=== PATIENT | male | born 1970 | race Caucasian/White ===

== ENCOUNTER 2017-02-15 06:09 | Day surgery (SDC) | payer BC ==
--- NOTE | 2017-02-07 11:33 | HP ---
DATE OF ADMISSION: 02/13/2017 HISTORY OF PRESENT ILLNESS: This is the first orthopedic outpatient admission for surgery for this 46-year- old male who is being admitted with a tear of the rotator cuff, intractable pain, arthritis of the AC joint, and possible biceps tendonitis. The patient has gone through a treatment program, which has failed. He has had continued pain and inability to use his right arm for any type of lifting, overhead arm movement. He has significant weakness and positive nighttime pain that disturbs his sleep. With the failed treatment, the patient is now being scheduled for the surgery. The procedure has been outlined to him. He understands the procedure and has consented to it. ALLERGIES: To Ceclor and Lorabid. CURRENT MEDICATIONS: Current medications include tramadol 50 mg and Mobic 15 mg. PAST MEDICAL HISTORY: The patient denies any previous medical history. PAST SURGICAL HISTORY: Positive. He has had previous sinus surgery. He has had right hand tendon repair and appendectomy. He has had general anesthesia with no complications or problems. He has negative bleeding history and negative blood clot history. SOCIAL HISTORY: He is a nonsmoker. Alcohol is only occasional. PHYSICAL EXAMINATION: GENERAL: Today, reveals a well-developed and well-nourished 46-year-old male in moderate distress. HEAD, EYES, EARS, NOSE AND THROAT: Normocephalic. NECK: Supple. CHEST: Clear. COR: Regular rate. ABDOMEN: Soft. : Intact. EXTREMITIES: Examination of the right shoulder reveals abduction, forward flexion to 160 degrees, positive rotator cuff pain, especially on stressing. Positive AC joint pain and positive pain over the biceps tendon. RADIOGRAPHIC STUDIES: The patient had a previous MRI, which shows tear of the rotator cuff, questionable biceps tendon injury, and AC joint arthritis. ASSESSMENT: 1. Right shoulder acromioclavicular joint arthritis. 2. Rotator cuff tear, right shoulder. 3. Bicipital tendinitis, right shoulder. PLAN: Plan is for the patient to undergo arthroscopic surgery. Procedure has been outlined to the patient. He understands the procedure and has consented to it. KRISHNA /[id number]
[~2017-02-15 06:09] MED LIST: Lactated Ringers 1,000 ML IV SCH; Lidocaine 1%/Sod Bicarbonate in NS 8.4% 1 ML Syringe IV PRN; Sodium Chloride 0.9% 10 ML Syringe FLUSH PRN
--- NOTE | 2017-02-15 07:03 | PCM.PREANE ---
Preanesthetic Assessment - Anesthesia/Transfusion/Family Hx Anesthesia History: Prior Anesthesia Without Reaction Family History of Anesthesia Reaction: No Transfusion History: No Prior Transfusion(s) - Review of Systems General: No Symptoms Pulmonary: No Symptoms Cardiovascular: No Symptoms Gastrointestinal: No Symptoms Neurological: No Symptoms Other: Reports: None - Physical Assessment NPO Status Date: 02/14/17 NPO Status Time: 20:30 Pulse: 85 O2 Sat by Pulse Oximetry: 98 Respiratory Rate: 16 Blood Pressure: 144/99 Temperature: 36.6 C Vital Signs: Last Vital Signs Temp 36.6 C 02/15/17 06:15 Pulse 85 02/15/17 06:15 Resp 16 02/15/17 06:15 BP 144/99 H 02/15/17 06:15 Pulse Ox 98 02/15/17 06:15 Height: 1.73 m Weight: 74.843 kg ASA Class: 1 Mental Status: Alert & Oriented x3 Airway Class: Mallampati = 1 Dentition: Reports: Normal Dentition Thyro-Mental Finger Breadths: 3 Mouth Opening Finger Breadths: 3 ROM/Head Extension: Full Lungs: Clear to Auscultation, Normal Respiratory Effort Cardiovascular: Regular Rate, Regular Rhythm, No Murmurs - Allergies Allergies/Adverse Reactions: Allergies Allergy/AdvReac Type Severity Reaction Status Date / Time cefaclor [From Ceclor] Allergy Rash Verified 02/15/17 06:55 loracarbef [From Lorabid] Allergy Rash Verified 02/15/17 06:55 - Blood Blood Available: No Product(s) Available: None - Anesthesia Plan Pre-Op Medication Ordered: None - Acknowledgements Anesthesia Type Planned: General Anesthesia, Regional Block (Interscalene block for post-op pain control) Pt an Appropriate Candidate for the Planned Anesthesia: Yes Alternatives and Risks of Anesthesia Discussed w Pt/Guardian: Yes Pt/Guardian Understands and Agrees with Anesthesia Plan: Yes PreAnesthesia Questionnaire HEENT History: Reports: None Cardiovascular History: Reports: High Cholesterol Respiratory History: Reports: None Gastrointestinal History: Reports: None Genitourinary History: Reports: None 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 TECHNOLOGY TRAINER History: Reports: None Musculoskeletal History: Reports: None Neurological History: Reports: None Psychiatric History: Reports: Anxiety Endocrine/Metabolic History: Reports: None Hematologic History: Reports: None Immunologic History: Reports: None Oncologic (Cancer) History: Reports: None Dermatologic History: Reports: None - Past Surgical History Head Surgeries/Procedures: Reports: None HEENT Surgical History: Reports: Naso-Sinus Surgery Cardiovascular Surgical History: Reports: None Respiratory Surgical History: Reports: None GI Surgical History: Reports: Appendectomy Male Surgical History: Reports: Vasectomy Endocrine Surgical History: Reports: None Neurological Surgical History: Reports: None Musculoskeletal Surgical History: Reports: Other (See Below) Other Musculoskeletal Surgeries/Procedures:: toe surgery Oncologic Surgical History: Reports: None Dermatological Surgical History: Reports: None - SUBSTANCE USE Smoking Status *Q: Former Smoker Tobacco Use Within Last Twelve Months: Smokeless Tobacco Second Hand Smoke Exposure: No Days Per Week of Alcohol Use: 1 Number of Drinks Per Day: 0 Total Drinks Per Week: 0 Recreational Drug Use History: No - HOME MEDS Home Medications: Home Meds Multivitamin [Poly-Vitamin] 1 tab PO DAILY 02/14/17 [History] SUMAtriptan Succinate [Imitrex] 100 mg PO ASDIRECTED PRN 02/14/17 [History] Venlafaxine HCl [Venlafaxine ER] 150 mg PO DAILY 02/14/17 [History] traMADol HCl [Tramadol HCl] 50 mg PO Q6H PRN 02/14/17 [History] - CURRENT (IN HOUSE) MEDS Current Meds: Current Medications Lactated Ringer's (Ringers, Lactated) 1,000 mls @ 125 mls/hr IV ASDIRECTED DEE Last Admin: 02/15/17 06:30 Dose: 125 mls/hr Lidocaine/Sodium Bicarbonate (Buffered Lidocaine 1% In Ns 8.4%) 0.25 ml IV ONETIME PRN PRN Reason: Prior to IV Start Last Admin: 02/15/17 06:14 Dose: 0.25 ml Sodium Chloride (Saline Flush) 10 ml FLUSH ASDIRECTED PRN PRN Reason: Keep Vein Open
[2017-02-15] MEDS ORDERED: Bupivacaine 0.5%/EPINEPHrine 1:200,000 50 ML MDV ONE (07:09)
[2017-02-15] MEDS ORDERED: EPINEPHrine 1 MG/ML 30 ML MDV ONE ×2 (07:09→09:15)
[2017-02-15] MEDS ORDERED: EPINEPHrine 1 MG/ML SDV ONE (07:10)
[2017-02-15] MEDS ORDERED: Ropivacaine 0.5% 5 MG/ML 30 ML SDV ONE (07:10)
[2017-02-15] MEDS ORDERED: Rocuronium 50 MG/5 ML Vial ONE (07:26)
[2017-02-15] MEDS ORDERED: Propofol 200 MG/20 ML SDV ONE (07:26)
[2017-02-15] MEDS ORDERED: fentaNYL 100 MCG/2 ML SDV ONE ×2 (07:26→09:44)
[2017-02-15] MEDS ORDERED: Ondansetron 4 MG/2 ML SDV ONE (07:26)
[2017-02-15] MEDS ORDERED: Midazolam 1 MG/ML 2 ML SDV ONE (07:27)
[2017-02-15] MEDS ORDERED: Lidocaine 1% 4 ML ONE (07:27)
[2017-02-15] MEDS ORDERED: Ketorolac 30 MG/ML SDV IVPUSH PRN (07:30)
[2017-02-15] MEDS ORDERED: HYDROmorphone 0.5 MG/0.5 ML Syringe IVPUSH PRN ×2 (07:30→08:57)
[2017-02-15] MEDS ORDERED: Ondansetron 4 MG/2 ML SDV IVPUSH PRN ×2 (07:30→08:57)
[2017-02-15] MEDS ORDERED: Cyclobenzaprine 10 MG Tab PO PRN (07:30)
[2017-02-15] MEDS ORDERED: Acetaminophen/oxyCODONE 325-5 MG Tab PO PRN (07:30)
[2017-02-15] MEDS ORDERED: Clindamycin Phosphate 900 MG in Dextrose 5% in Water 100 ML IV ONE ×2 (08:00)
[2017-02-15] MEDS ORDERED: Morphine 15 MG Tab.ER PO SCH ×2 (08:00→12:30)
[2017-02-15] MEDS ORDERED: Clindamycin Phosphate 900 MG in Sodium Chloride 0.9% 100 ML IV ONE (08:00)
[2017-02-15] MEDS ORDERED: Lactated Ringers 1,000 ML ONE (08:35)
[2017-02-15] MEDS ORDERED: ePHEDrine 50 MG/ML SDV ONE (08:36)
[2017-02-15] MEDS ORDERED: fentaNYL 100 MCG/2 ML SDV IVPUSH PRN (08:57)
[2017-02-15] MEDS ORDERED: Meperidine PF 50 MG/ML Syringe IVPUSH PRN (08:57)
--- NOTE | 2017-02-15 09:00 | PCM.SN ---
- Free Text/Narrative Note: Note: 02/15/2017 0855 136/85 67 98% 10 Surgeon and pt request post-op pain control for right shoulder surgery risk of block failure, facial numbness, site infection, and chronic pain discussed with pt and agreed to proceed. All standard monitors est. EKG, BP, Pulse Ox, 2L O2 and 2ml versed, 2ml fentanyl pre-op dx. right shoulder pain post-op dx right shoulder arthroscopy pt for interscalene block placement all standard monitors est. pt ID time out performed IV sedation 2ml versed, 2ml fentanyl, 2L NC O2, sterile prep and drape of right neck and shoulder U/S placed with visualization of brachial plexus from clavicle to cricoid local skin infiltration 22ga. Stimplex A insulated needle visualized at brachial plexus nerve stimulator at .9 Tammy Amps stop at .4 Tammy Amps with good bicep twitch with 1ml NaCl and lose of twitch neg aspirations every 5ml of 0.5% ropivacaine and 1:200,000 epi total of 30ml injected all done with U/S guidance needle withdrawn no complications noted pt tolerated procedure well block settling in start procedure at 0730 end procedure at 0746 117/80 61 100% 13
[2017-02-15] MEDS ORDERED: Iodine/Sodium Iodide 2% Tincture 30 ML Bottle ONE (09:25)
--- NOTE | 2017-02-15 10:52 | PCM.POSTAN ---
POST ANESTHESIA ASSESSMENT - MENTAL STATUS Mental Status: Oriented - VITAL SIGNS Pulse Rate: 113 SaO2: 100 Resp Rate: 16 Blood Pressure: 146/76 Temperature: 97.6 C - RESPIRATORY Respiratory Status: Respiratory Rate WNL, Airway Patent, O2 Saturation Stable - CARDIOVASCULAR CV Status: Pulse Rate WNL, Blood Pressure Stable, Slow Pulse Rate - GASTROINTESTINAL GI Status: No Symptoms - PAIN Pain Score: 0 - POST OP HYDRATION Hydration Status: Adequate & Stable
--- NOTE | 2017-02-16 06:59 | OR ---
DATE OF OPERATION: 02/15/2017 SURGEON: Madi Marrero MD PREOPERATIVE DIAGNOSIS: Right shoulder internal derangement. POSTOPERATIVE DIAGNOSIS: 1. Right shoulder chronic rotator cuff tear. 2. Right shoulder partial glenoid labral tear. 3. Acromial and clavicle degenerative arthritis with inferior exostosis, right shoulder. ANESTHESIA: General. OPERATION PERFORMED: 1. Arthroscopic debridement of right shoulder joint. 2. Arthroscopic partial acromionectomy, right shoulder. 3. Arthroscopic distal clavicle resection, right shoulder. 4. Mini open chronic rotator cuff tear repair, right shoulder. DESCRIPTION OF PROCEDURE: The patient was taken to the operating room in supine position, was placed under a general anesthesia. He was then placed in a sitting position for operation on the right shoulder. After the patient was positioned, the prepping and draping was carried out and the procedure began with the posterior portal being placed in anatomical soft spot and shoulder. The arthroscope was introduced into the shoulder joint. A Wissinger day was then used to develop the anterior portal and then inspection of the joint found the subscapularis to be visualized and intact. The glenoid rim anterior and extending up under the base of the biceps attachment was degenerative and torn. Biceps tendon was intact. The glenoid has early stages of osteochondrosis developing both in the glenoid and humeral head. The biceps tendon was firmly attached to the glenoid and extended down through the foraminal area of the shoulder. The rotator cuff showed a complex tearing with the major tear being the anterior half and then extending in an L- shaped fashion posteriorly. Once that was identified, the rotator cuff area was debrided. The operation then proceeded with debridement of the right shoulder joint and to remove any type of fibrous adhesions. The arthroscope was then removed and then placed in the subacromial space and in that area, the operation then proceeded with a bursectomy being carried out after a lateral portal was developed. The partial acromionectomy was carried out to remove the anterior spurring and curved type formation of the acromion and then the AC joint, which showed the degenerative arthritis changes had a very large exostosis formation the tip of the clavicle extending inferiorly. This was removed with a Lazaro type procedure to create a nice space for the AC joint and removal of the impinging type bony structures. The operation proceeded with irrigation of wound area. Then, the operation proceeded with lightly debridement of the edges of the rotator cuff and inspection of the rotator cuff showing tearing and complete tear from the greater tuberosity and was opted to go to a mini open and the instruments were then withdrawn from the shoulder joint for the arthroscopic side of the procedure and then the operation proceeded to the mini open procedure. A small incision was placed beginning on the edge of the acromion extending distally paralleling the fibers of the deltoid. Penetrating through the skin and subcutaneous tissues, deltoid fibers then coming directly down on the greater tuberosity in the area of the rotator cuff tear. Inspection and light debridement of the greater tuberosity was roughened up to a bleeding type bone and it was opted to go ahead and do an open repair of the rotator cuff, was extended posteriorly. The split was closed with #1 FiberWire in a [id number] fashion with 3 sutures being used to close the rent that was going posteriorly. Once that was completed, the operation proceeded to the area where the rotator cuff had detached from the greater tuberosity. It was almost a lamination type tear. The SpeedBridge was used to reapproximate the major portion of rotator cuff tendon onto the greater tuberosity and once that was completed, the laminated portion of the superior surface of the rotator cuff was then sutured back over the top using #1 Vicryl. The whole area was reinforced with #1 Vicryl and once that was completed, a firm attachment palpation found the rotator cuff to be securely attached. Operation then proceeded to the subacromial space where palpation found the acromion to be nice and smooth. No exostosis formation could be palpated and then the operation proceeded with irrigation of the joint area. The deltoid interval was closed with interrupted #1 Vicryl, subcutaneous tissue with 2-0 Vicryl and skin with skin andrea. The patient was placed in standard dressings and abduction sling. He tolerated the procedure well and left the operating room in stable condition to his room for recovery. ESTIMATED BLOOD LOSS: MMODAL /[id number]
== END 2017-02-15 12:50 | disposition home or self-care (01) ==
LOC: JD.SDS 06:09
PROVIDERS: ATTEND Specialist
DX: M75.121 Complete rotator cuff tear or rupture of right shoulder, not specified as traumatic (principal); M19.011 Primary osteoarthritis, right shoulder; S43.431A Superior glenoid labrum lesion of right shoulder, initial encounter; E78.2 Mixed hyperlipidemia; F41.9 Anxiety disorder, unspecified; Z88.1 Allergy status to other antibiotic agents; Z79.899 Other long term (current) drug therapy; Z98.890 Other specified postprocedural states; Z90.49 Acquired absence of other specified parts of digestive tract; Z82.49 Family history of ischemic heart disease and other diseases of the circulatory system
CPT/HCPCS: 23410; 29823; 29824; A9270; C1713; J0171; J2250; J2405; J2795; J3010; J7120; 01638; 64415; J2704

== ENCOUNTER 2017-02-16 00:17 | Emergency (ER) | payer BC ==
--- NOTE | 2017-02-16 00:45 | EDM.PDOC ---
ED HPI GENERAL MEDICAL PROBLEM - General Chief Complaint: Upper Extremity Injury/Pain Stated Complaint: arm pains Time Seen by Provider: 02/16/17 00:31 Source of Information: Reports: Patient, Family (), RN Notes Reviewed History Limitations: Reports: No Limitations - History of Present Illness INITIAL COMMENTS - FREE TEXT/NARRATIVE: The patient states that he underwent an arthroscopic repair of his right rotator cuff per Dr. Marrero yesterday, 02/15/2017. He received a nerve block for anesthesia, and was discharged home with prescriptions for Percocet 5/325, 1 -2 tablets po Q4 hrs and MS Contin 15 mg po Q12 hrs. he states that once the nerve block wore off, he developed significant pain to his right shoulder, that the oral pain medications have not been helping. He has not attempted to contact Dr. Marrero. 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: Splint(s), Other (see below) Other Treatments INTERIOR ASSEMBLIES DEVELOPER PROVER: percocet, flexeril, MS contin, Ibuprofen right arm/shoulder Pain Score (Numeric/FACES): 10 - Related Data Allergies Allergy/AdvReac Type Severity Reaction Status Date / Time cefaclor [From Ceclor] Allergy Rash Verified 02/15/17 06:55 loracarbef [From Lorabid] Allergy Rash Verified 02/15/17 06:55 Home Meds: Home Meds Multivitamin [Poly-Vitamin] 1 tab PO DAILY 02/14/17 [History] SUMAtriptan Succinate [Imitrex] 100 mg PO ASDIRECTED PRN 02/14/17 [History] Venlafaxine HCl [Venlafaxine ER] 150 mg PO Q8HR PRN 02/14/17 [History] Morphine [MS Contin] 15 mg PO Q12HR PRN 02/16/17 [History] oxyCODONE HCl/Acetaminophen [oxyCODONE-Acetaminophen 5-325] 1 - 2 tab PO Q4HR PRN 02/16/17 [History] Past Medical History Cardiovascular History: Reports: High Cholesterol (untreated) Psychiatric History: Reports: Anxiety (untreated) - Past Surgical History HEENT Surgical History: Reports: Naso-Sinus Surgery GI Surgical History: Reports: Appendectomy Male Surgical History: Reports: Vasectomy Musculoskeletal Surgical History: Reports: Shoulder Surgery (right rotator cuff repair, 02/15/2017, per Dr. 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) Review of Systems - Review of Systems Review Of Systems: See Below Constitutional: Reports: No Symptoms Eyes: Reports: No Symptoms Ears: Reports: No Symptoms Nose: Reports: No Symptoms Mouth/Throat: Reports: No Symptoms Respiratory: Reports: No Symptoms Cardiovascular: Reports: No Symptoms GI/Abdominal: Reports: No Symptoms Genitourinary: Reports: No Symptoms Musculoskeletal: Reports: No Symptoms Skin: Reports: No Symptoms Neurological: Reports: No Symptoms Psychiatric: Reports: No Symptoms ED EXAM, GENERAL - Physical Exam Exam: See Below Exam Limited By: No Limitations General Appearance: Alert, WD/WN, Mild Distress (Appears uncomfortable) Extremities: Other (Right upper extremity is contained within a shoulder immobilizer, with fresh dressings over the right shoulder, which were not removed. Neurovascular status of the right upper extremity is intact.) Course - Vital Signs Last Recorded V/S: Last Vital Signs Temp 36.8 C 02/16/17 00:20 Pulse 81 02/16/17 00:20 Resp 18 02/16/17 00:20 BP 142/88 H 02/16/17 00:20 Pulse Ox 94 L 02/16/17 00:20 - Orders/Labs/Meds Meds: Medications Discontinued Medications Generic Name Dose Route Start Last Admin Trade Name Claudeq PRN Reason Stop Dose Admin Hydromorphone HCl 1 mg 02/16/17 00:56 02/16/17 01:10 Dilaudid IM 02/16/17 00:57 1 mg ONETIME ONE Administration - Re-Assessments/Exams Free Text/Narrative Re-Assessment/Exam: 02/16/17 01:29 We were unable to get in touch with Dr. Marrero. The patient was given Dilaudid 1 mg IM here in the ED. I will discharge him home, with the recommendation that he ice his shoulder, and continue to take both his Percocet and MS Contin as prescribed. I would like him to contact the office of Dr. Marrero first thing this morning. Departure - Departure Time of Disposition: 01:30 Disposition: Home, Self-Care 01 Condition: Good Clinical Impression: Acute postoperative pain of right shoulder - Discharge Information Referrals: Man Cohen MD [Primary Care Provider] - Madi Marrero MD [Physician] - Forms: ED Department Discharge Additional Instructions: You were seen in the emergency room for uncontrolled pain of your right shoulder following arthroscopic rotator cuff repair. You were given an injection of IM Dilaudid in the ER. We were unable to contact Dr. Marrero. We recommend that you continue to take your currently prescribed Percocet and MS Contin, as prescribed. We recommend that you apply ice packs to your right shoulder, continuously. Contact the office of Dr. Marrero first thing this morning. If any other problems, please do not hesitate to return to the ER.
[2017-02-16] MEDS ORDERED: HYDROmorphone 1 MG/ML Syringe IM ONE (00:56)
== END 2017-02-16 01:40 | disposition home or self-care (01) ==
LOC: JD.ED 00:17
DX: G89.18 Other acute postprocedural pain (principal); M25.511 Pain in right shoulder; E78.00 Pure hypercholesterolemia, unspecified; F41.9 Anxiety disorder, unspecified; Z98.890 Other specified postprocedural states; Z88.1 Allergy status to other antibiotic agents; Z88.8 Allergy status to other drugs, medicaments and biological substances
CPT/HCPCS: 96372; 99283; J1170; 99282